=== PATIENT | female | born 1950 | race African-American/Black ===

== ENCOUNTER 2017-10-01 21:41 | Emergency (ER) | payer OTHER ==
[2017-10-01 22:13] LABS: ADD MAN DIFF? NO
[2017-10-01 22:18] LABS: BILIRUBIN,URINE NEGATIVE (NEG); CLARITY,URINE CLEAR; COLOR,URINE YELLOW; GLUCOSE,URINE NEGATIVE (NEG); NITRITE,URINE POSITIVE (NEG); PH,URINE 5.5; PROTEIN,URINE NEGATIVE (NEG-TRACE)
[2017-10-01 22:20] LABS: BASO # 0.1 x10^3/uL (0.0-0.2); BASO % 1 % (0-3); EOS # 0.1 x10^3/uL (0.0-0.7); EOS % 2 % (0-3); HEMATOCRIT 42.7 % (36.0-47.0); HEMOGLOBIN 14.3 g/dL (12.0-15.5); LYMPH # 2.1 x10^3/uL (1.0-4.8); LYMPH % 27 % (24-48); MEAN CORPUSCULAR HEMOGLOBIN 33 pg (25-35); MEAN CORPUSCULAR HGB CONC 34 g/dL (31-37); MEAN CORPUSCULAR VOLUME 98 fL (79-100); MONO # 0.6 x10^3/uL (0.0-1.1); MONO % 8 % (0-9); NEUT # 5.1 x10^3uL (1.8-7.7); NEUT % 64 % (31-73); PLATELET COUNT 287 x10^3/uL (140-400); RED BLOOD COUNT 4.37 x10^6/uL (3.50-5.40); WHITE BLOOD COUNT 8.1 x10^3/uL (4.0-11.0)
[2017-10-01 22:27] LABS: AGAP ISTAT 18 mmol/L (6-14); BUN ISTAT 12 mg/dL (8-26); CHLORIDE ISTAT 100 mmol/L (98-110); CREATININE ISTAT 0.8 mg/dL (0.5-1.4); GLUCOSE ISTAT 116 mg/dL (70-99); HEMATOCRIT ISTAT 42 % (36-40); HEMOGLOBIN ISTAT 14.3 g/dL (12-15); ION CA ISTAT 1.11 mmol/L (1.13-1.32); POTASSIUM ISTAT 3.8 mmol/L (3.5-5.0); RBC,URINE 0 /HPF (0-2); SODIUM ISTAT 137 mmol/L (135-145); TOT CO2 ISTAT 23 mmol/L (23-32)
[2017-10-01 22:28] LABS: BACTERIA,URINE MANY /HPF (0-FEW); SQUAMOUS EPITHELIAL CELL,UR MOD /LPF; TRICHOMONAS,URINE PRESENT; WBC,URINE 20-40 /HPF (0-4)
[2017-10-01 22:32] LABS: ANION GAP 14 (6-14); BLOOD UREA NITROGEN 13 mg/dL (7-20); BUN/CREATININE RATIO 14 (6-20); CALCIUM 9.2 mg/dL (8.5-10.1); CARBON DIOXIDE 23 mmol/L (21-32); CHLORIDE 100 mmol/L (98-107); CREATININE 0.9 mg/dL (0.6-1.0); GFR 75.6; GLUCOSE 118 mg/dL (70-99); POTASSIUM 3.9 mmol/L (3.5-5.1); SODIUM 137 mmol/L (136-145)
[2017-10-01 22:40] LABS: ALBUMIN 3.8 g/dL (3.4-5.0); ALK PHOS 80 U/L (46-116); ALT (SGPT) 36 U/L (14-59); AST (SGOT) 16 U/L (15-37); LIPASE 109 U/L (73-393); TOTAL BILIRUBIN 0.4 mg/dL (0.2-1.0); TOTAL PROTEIN 7.8 g/dL (6.4-8.2)
[2017-10-01] MEDS ORDERED: CONTRAST GIVEN MC (22:45)
[2017-10-01] MEDS ORDERED: ONDANSETRON PF 4 MG/2 ML VIAL. (22:48)
[2017-10-01] MEDS ORDERED: KETOROLAC 15 MG/ML VIAL. (22:48)
[2017-10-01] MEDS ORDERED: KETOROLAC 30 MG/ML INJ. IV (23:00)
[2017-10-01] MEDS: IOHEXOL 300 MG/ML 100ML VIAL. IV (23:00)
[2017-10-01] MEDS: ONDANSETRON PF 4 MG/2 ML VIAL. IV (23:01)
[2017-10-01] MEDS: KETOROLAC 15 MG/ML VIAL. IV (23:02)
[2017-10-02] MEDS: cefTRIAXone IM 250 MG VIAL IM (00:30)
[2017-10-02] MEDS: metroNIDAZOLE 500 MG TABLET PO (00:30)
[2017-10-02] MEDS: AZITHROMYCIN 250 MG TABLET. PO (00:30)
== END 2017-10-02 01:00 | disposition home or self-care (01) ==
LOC: ER 10-02 01:00
DX: A59.01 Trichomonal vulvovaginitis (principal); E11.9 Type 2 diabetes mellitus without complications; E78.00 Pure hypercholesterolemia, unspecified; I10 Essential (primary) hypertension; E66.9 Obesity, unspecified; Z86.718 Personal history of other venous thrombosis and embolism; Z68.38 Body mass index [BMI] 38.0-38.9, adult; Z88.6 Allergy status to analgesic agent
CPT/HCPCS: 36415; 74177; 80047; 80053; 81001; 83690; 85025; 96372; 96374; 96375; 99285-25; J0696; J1885; J2405; Q0144

== ENCOUNTER → 2018-09-02 | Outpatient (CLI) | payer OTHER ==
[2017-10-02 00:27] VITALS: BP 160/70
[~2018-09-02] MED LIST: CEPH-264 PO
--- NOTE | 2018-09-02 16:01 | KCIC ---
EXAM: Bilateral screening mammogram. HISTORY: 68-year-old female presents for screening mammography. TECHNIQUE: Full-field digital craniocaudal and mediolateral oblique views of both breasts are obtained for evaluation. Computer aided detection with myhubD software version 9.3 was applied. COMPARISON: 01/13/2015 BREAST PARENCHYMAL DENSITY: Level B - Scattered fibroglandular densities. FINDINGS: There is no new suspicious mass, microcalcification or region of architectural distortion. There are stable areas of nodularity within both breasts. There are benign calcifications within both breasts. IMPRESSION: BI-RADS Category 2: Benign finding(s). RECOMMENDATION: Annual mammography is recommended. If your mammogram demonstrates that you have dense breast tissue, which could hide abnormalities, and if you have other risk factors for breast cancer that have been identified, you might benefit from supplemental screening tests that may be suggested by your ordering physician. Dense breast tissue, in and of itself, is a relatively common condition. This information is not provided to cause undue concern, but rather to raise your awareness and to promote discussion with your physician regarding the presence of other risk factors, in addition to dense breast tissue. A report of your mammography results will be sent to you and your physician. You should contact your physician if you have any questions or concerns regarding this report. Mammography is a sensitive method for finding small breast cancers, but it does not detect them all and is not a substitute for careful clinical examination. A negative mammogram does not negate a clinically suspicious finding and should not result in delay in biopsying a clinically suspicious abnormality. PQRS compliance statement - Patient information was entered into a reminder system with a target due date for the next mammogram. "Our facility is accredited by the [employer] Mammography Program." Electronically signed by: Babita Samano MD (09/02/2018 3:57 PM) [id number]
== END | disposition home or self-care (01) ==
LOC: KCIC MAMMO 15:18
PROVIDERS: ATTEND Internal Medicine
DX: Z12.31 Encounter for screening mammogram for malignant neoplasm of breast (principal)
CPT/HCPCS: 77067

== ENCOUNTER → 2019-09-20 | Outpatient (CLI) | payer OTHER ==
[2017-10-02 00:27] VITALS: BP 160/70
--- NOTE | 2019-09-20 18:49 | KCIC ---
Bilateral digital screening mammograms: Reason for examination: Routine screening. Comparison is made to previous studies dated 09/02/2018 and 01/13/2015. Interpretation was made with the benefit of CAD. The skin and nipples show no abnormalities. No abnormal axillary lymph nodes are seen. The breast parenchyma shows scattered fibroglandular density. (Breast density: Category B.) There are small parenchymal densities in the left breast which are stable. There are no new dominant masses, suspicious calcifications or architectural distortions. Some benign calcifications are present. Impression: No evidence of malignancy. Recommend routine screening. BI-RADS category 2: Benign "Our facility is accredited by the [employer] Mammography Program." This patient's information has been entered into a reminder system for the patient to be notified with the results of her examination and a target date for the next mammogram. Electronically signed by: Alpa Correia MD (09/20/2019 6:46 PM) [id number]
== END | disposition home or self-care (01) ==
LOC: KCIC MAMMO 15:01
PROVIDERS: ATTEND Internal Medicine
DX: Z12.31 Encounter for screening mammogram for malignant neoplasm of breast (principal); N64.89 Other specified disorders of breast
CPT/HCPCS: 77067

== ENCOUNTER → 2019-10-25 | Outpatient (CLI) | payer OTHER ==
[2017-10-02 00:27] VITALS: BP 160/70
--- NOTE | 2019-10-27 14:40 | CARD ---
MR#: [id number] Date of Study: 10/25/2019 Ordering Physician: MICHELLE ORTIZ, Referring Physician: MICHELLE ORTIZ, Tech: Malinda Holly REX APPROVED REPORT EXAM: Two-dimensional and M-mode echocardiogram with Doppler and color Doppler. Other Information Quality : AverageHR: 102bpm Rhythm : NSRTechnically limited study due to body habitus. INDICATION Chest Pain 2D DIMENSIONS RVDd2.9 (2.9-3.5cm)Left Atrium(2D)3.0 (1.6-4.0cm) IVSd1.5 (0.7-1.1cm)Aortic Root(2D)2.6 (2.0-3.7cm) LVDd3.3 (3.9-5.9cm)LVOT Diameter1.9 (1.8-2.4cm) PWd0.9 (0.7-1.1cm)IVSs1.9 (0.8-1.2cm) LVDs2.5 (2.5-4.0cm)FS (%) 24.5 % PWs1.3 (0.8-1.2cm)SV22.6 ml LVEF(%)55.0 (>50%) M-Mode DIMENSIONS Left Atrium(MM)2.81 (2.5-4.0cm)Aortic Root3.16 (2.2-3.7cm) Aortic Valve AoV Peak Phil.165.0cm/sAoV VTI28.0cm AO Peak GR.10.9mmHgLVOT Peak Phil.88.5cm/s LVOT VTI 16.33cmAO Mean GR.6mmHg KARI (VMAX)1.91lb9WFL (VTI)1.66cm2 Mitral Valve MV E Qxfphbcu28.5cm/sMV DECEL [id number] MV A Ayvlfkfx878.0cm/sMV QZQ63mz E/A Ratio0.6MVA (PHT)5.31cm2 Pulmonary Valve PV Peak Pkhbgjfu11.5cm/sPV Peak Grad.3mmHg LEFT VENTRICLE The left ventricle is normal size. There is moderate concentric left ventricular hypertrophy. The lef t ventricular systolic function is normal and the ejection fraction is within normal range. The Eject ion Fraction is 60-65%. There is grossly normal LV segmental wall motion. Transmitral Doppler flow pa ttern is Grade I-abnormal relaxation pattern. RIGHT VENTRICLE The right ventricle is normal size. There is normal right ventricular wall thickness. The right ventr icular systolic function is normal. ATRIA The left atrium is moderately dilated. The right atrium is mildly dilated. The interatrial septum is intact with no evidence for an atrial septal defect or patent foramen ovale as noted on 2-D or Dopple r imaging. AORTIC VALVE The aortic valve is probably trileaflet. The aortic valve is thickened/calcified and not well visuali zed. Doppler and Color Flow revealed no significant aortic regurgitation. There is no significant aor tic valvular stenosis. MITRAL VALVE Mitral annular calcification is mild to moderate. There is no evidence of mitral valve prolapse. Ther e is no mitral valve stenosis. Doppler and Color Flow revealed no mitral valve regurgitation noted. TRICUSPID VALVE The tricuspid valve is normal in structure and function. Doppler and Color Flow revealed no tricuspid valve regurgitation noted. There is no tricuspid valve prolapse or vegetation. There is no tricuspid valve stenosis. PULMONIC VALVE The pulmonic valve is not well visualized. GREAT VESSELS The aortic root is normal in size. The ascending aorta is normal in size. The IVC is normal in size a nd collapses >50% with inspiration. PERICARDIAL EFFUSION There is no evidence of significant pericardial effusion. Critical Notification Critical Value: No <Conclusion> The left ventricular systolic function is normal and the ejection fraction is within normal range. Th e Ejection Fraction is 60-65%. There is grossly normal LV segmental wall motion. Signed by : Jun Henson, Electronically Approved : 10/25/2019 14:32:32
== END | disposition home or self-care (01) ==
LOC: ECHO 13:21
PROVIDERS: ATTEND Internal Medicine Cardiovascular Disease
DX: I34.8 Other nonrheumatic mitral valve disorders (principal); I51.7 Cardiomegaly
CPT/HCPCS: 93306

== ENCOUNTER → 2020-11-09 | Outpatient (CLI) | payer OTHER ==
[2017-10-02 00:27] VITALS: BP 160/70
--- NOTE | 2020-11-09 14:55 | KCIC ---
INDICATION: Screening for osteopenia/osteoporosis. Postmenopausal evaluation. COMPARISON: None. TECHNIQUE: Bone densitometry was performed through the lumbar spine and proximal femur. IMPRESSION: Lumbar Spine: BMD: 1.27 T-Score: 2.0 Range: Normal Proximal Femur: BMD: 0.8 T-Score: -1.1 Range: Osteopenic World Health Organization Criteria for Bone Density: T-Score: > -1.0: Normal Range < -1.0 to -2.5: Osteopenic Range < -2.5: Osteoporotic Range Electronically signed by: Ulices Smith MD (11/09/2020 2:52 PM) [id number]
--- NOTE | 2020-11-10 11:36 | KCIC ---
BILATERAL SCREENING MAMMOGRAM History: Routine screening. Comparison: Bilateral mammogram September 20, 2019 and prior years. Technique: Routine digital mammogram views were obtained. Findings: Breast Tissue Density B : There are scattered areas of fibroglandular density. Benign calcifications are redemonstrated bilaterally. Mild glandular nodularity of the left breast is unchanged. There are no dominant masses, suspicious microcalcifications or architectural distortion. IMPRESSION: No mammographic evidence of malignancy. Recommend routine screening. BI-RADS category 2: Benign findings. The images were reviewed with computer aided detection. Patient information is entered into the reminder system with a target due date for the next screening mammogram. Mammography is the most sensitive method for finding small breast cancers, but it does not detect the m all and is not a substitute for careful clinical examination. A negative mammogram does not negate a clinically suspicious finding and should not result in delay in biopsying a clinically suspicious a bnormality. "Our facility is accredited by the [employer] Mammography Program." Electronically signed by: Chay Bhatt MD (11/10/2020 11:34 AM) [facility]
== END ==
LOC: KCIC MAMMO 12:22
PROVIDERS: ATTEND Internal Medicine
DX: Z12.31 Encounter for screening mammogram for malignant neoplasm of breast (principal); Z78.0 Asymptomatic menopausal state
CPT/HCPCS: 77067; 77080

== ENCOUNTER 2021-04-19 17:13 | Emergency (ER) | payer OTHER ==
[~2021-04-19] VITALS: Ht 165.1 cm; Wt 106.8 kg
[2021-04-19 20:37] VITALS: BP 158/76
[2021-04-19] MEDS ORDERED: NEOMY/BACITR/POLYMYXIN OINT PACKET. TP ONE (21:15)
[2021-04-19] MEDS ORDERED: DIPH,PERTUSS(ACELL),TET VAC/PF 0.5 ML SYRINGE. VAX IM ONE (21:15)
[2021-04-19] MEDS ORDERED: BACI28.43 TP (21:40)
--- NOTE | 2021-04-19 21:40 | PHYS DOC ---
Past Medical History Past Medical History: Diabetes-Type II, High Cholesterol, Hypertension Additional Past Medical Histor: HIGH CHOLESTEROL (MADELINE NICHOLE ITALIAN LECTURER) Past Surgical History: Other Additional Past Surgical Histo: RLE DVT (MADELINE NICHOLE ITALIAN LECTURER) Smoking Status: Current Every Day Smoker Alcohol Use: None Drug Use: None (MADELINE NICHOLE APRN) General Adult EDM: Chief Complaint: FINGER INJURY HPI: HPI: Patient is a 70 year old female with a history of diabetes type 2, hyperten ember, high cholesterol, who presents to the ED today with a burn to the right middle finger that occurred yesterday while she was making casserole. Patient is right-handed. Requesting debridement. (MADELINE NICHOLE ITALIAN LECTURER) Review of Systems: Review of Systems: Constitutional: Denies fever or chills. [] Musculoskeletal: Denies back pain or joint pain. [] Integument: Right middle finger burn Neurologic: Denies headache, focal weakness or sensory changes. [] Psychiatric: Denies depression or anxiety. [] (MADELINE NICHOLE ITALIAN LECTURER) Heart Score: C/O Chest Pain: N/A Risk Factors: Risk Factors: DM, Current or recent (<one month) smoker, HTN, HLP, family history of CAD, obesity. Risk Scores: Score 0 - 3: 2.5% MACE over next 6 weeks - Discharge Home Score 4 - 6: 20.3% MACE over next 6 weeks - Admit for Clinical Observation Score 7 - 10: 72.7% MACE over next 6 weeks - Early Invasive Strategies (MADELINE NICHOLE ITALIAN LECTURER) Current Medications: Current Medications Medications (Trade) Dose Ordered Sig/Yong Start Time Stop Time Status Last Admin Dose Admin Diphtheria/ Tetanus/Acell Pertussis (ADACEL TDap SYRINGE) 0.5 ml ONCE ONCE 04/19/21 21:15 04/19/21 21:16 DC Neomycin/ Polymyxin/ Bacitracin (Triple Antibiotic Ointment) 1 pkt 1X ONCE 04/19/21 21:15 04/19/21 21:16 DC (MADELINE NICHOLE ITALIAN LECTURER) Allergies: Allergies: Allergies Coded Allergies Type Severity Reaction Last Updated Verified acetaminophen Allergy Intermediate RASH 10/01/17 Yes ibuprofen Allergy Intermediate RASH 10/01/17 Yes (MADELINE NICHOLE ITALIAN LECTURER) Physical Exam: PE: Constitutional: Well developed, well nourished, no acute distress, non-toxic appearance. [] Skin: Warm, dry, no erythema, distal end of the right middle finger with a moderate size blister, no erythema. Neurovascular exam is intact to the right middle finger. +2 right radial pulse. Cap refill less than 2 seconds in the right middle finger Back: No tenderness, no CVA tenderness. [] Extremities: No tenderness, no cyanosis, no clubbing, ROM intact, no edema. [] Neurologic: Alert and oriented X 3, normal motor function, normal sensory function, no focal deficits noted. [] Psychologic: Affect normal, judgement normal, mood normal. [] (MADELINE NICHOLE APRN) Current Patient Data: Vital Signs: Vital Signs Date Time Temp Pulse Resp B/P (MAP) Pulse Ox O2 Delivery O2 Flow Rate FiO2 04/19/21 20:37 98.6 87 18 158/76 (100) 96 Room Air 98.6 (MADELINE NICHOLE APRN) EKG: EKG: [] (MADELINE NICHOLE APRN) Radiology/Procedures: Radiology/Procedures: Indication: Blister to the right middle finger from a burn Procedure: The patient was positioned appropriately. Local anesthesia was not applicable. An 18-gauge needle was used to make a small hole on the blister, moderate amount of clear fluid was drained. Neosporin applied to the area as well as nonstick dressing.. The patient tolerated the procedure well. Complications: none.[] (MADELINE NICHOLE APRN) Course & Med Decision Making: Course & Med Decision Making Pertinent Labs and Imaging studies reviewed. (See chart for details) This is a 70-year-old female patient presented to the ED today with a blister to the right middle finger from a burn yesterday. Blister was drained by me. Tetanus updated. Instructed to follow-up with [facility] wound clinic. (MADELINE NICHOLE APRN) Course & Med Decision Making I d/w my midlevel. Pt was very rude and accused her of not having a license, was upset over initial refusal to draing the blister given risk of infection. Pt a torrez of risk of infection and insists on having the blister drained. Was performed under sterile conditions with wound care instructions given. (ROSIE MARTIN DO) Dragon Disclaimer: David Disclaimer: This electronic medical record was generated, in whole or in part, using a voice recognition dictation system. (MADELINE NICHOLE APRN) Departure Departure Impression: Primary Impression: Second degree burn of finger of right hand Qualified Codes: T23.221A - Burn of second degree of single right finger (nail) except thumb, initial encounter Disposition: HOME / SELF CARE / HOMELESS Condition: STABLE Referrals: NICHOL MCALLISTER MD (PCP) LULU LANDIN MD Follow-up for the wound clinic Patient Instructions: Burn Care, Gitn-gv-Fixw Additional Instructions: You had a blister drained to your right middle finger, keep the area clean and dry. Follow-up with [facility] wound clinic as soon as you can Scripts Bacitracin (Bacitracin) 28.4 Gm Oint...g. 1 APPLIC TP BID, #[facility] Prov: MADELINE NICHOLE APRN 04/19/21 MADELINE NICHOLE APRN Apr 19, 2021 21:40 ROSIE MARTIN DO Apr 19, 2021 23:15
== END 2021-04-19 21:52 | disposition home or self-care (01) ==
LOC: ER 17:13
DX: T23.221A Burn of second degree of single right finger (nail) except thumb, initial encounter (principal); E11.9 Type 2 diabetes mellitus without complications; I10 Essential (primary) hypertension; E78.00 Pure hypercholesterolemia, unspecified; F17.200 Nicotine dependence, unspecified, uncomplicated; Z88.6 Allergy status to analgesic agent; X19.XXXA Contact with other heat and hot substances, initial encounter; Y93.89 Activity, other specified; Y92.89 Other specified places as the place of occurrence of the external cause; Y99.8 Other external cause status
CPT/HCPCS: 16020; 90471; 90715; 99283

== ENCOUNTER → 2022-01-09 | Outpatient (CLI) | payer MEDICARE, OTHER ==
[~2022-01-09] MED LIST changes: +BACI28.43 TP
--- NOTE | 2022-01-09 16:00 | KCIC ---
EXAM: Bilateral screening mammogram. HISTORY: 71-year-old female presents for screening mammography. TECHNIQUE: Full-field digital craniocaudal and mediolateral oblique views of both breasts are obtaine d for evaluation. Computer aided detection was applied. COMPARISON: 11/09/2020, 09/20/2019, 09/02/2018 BREAST PARENCHYMAL DENSITY: Level C - Heterogeneously dense. FINDINGS: There is no new suspicious mass, microcalcification or region of architectural distortion. There are multiple stable benign areas of nodularity and asymmetry within both breasts. There are mul tiple benign calcifications. IMPRESSION: RECOMMENDATION: If your mammogram demonstrates that you have dense breast tissue, which could hide abnormalities, and if you have other risk factors for breast cancer that have been identified, you might benefit from s upplemental screening tests that may be suggested by your ordering physician. Dense breast tissue, i n and of itself, is a relatively common condition. This information is not provided to cause undue c oncern, but rather to raise your awareness and to promote discussion with your physician regarding th e presence of other risk factors, in addition to dense breast tissue. A report of your mammography re sults will be sent to you and your physician. You should contact your physician if you have any ques tions or concerns regarding this report. Mammography is a sensitive method for finding small breast cancers, but it does not detect them all a nd is not a substitute for careful clinical examination. A negative mammogram does not negate a clin ically suspicious finding and should not result in delay in biopsying a clinically suspicious abnorma lity. PQRS compliance statement - Patient information was entered into a reminder system with a target due date for the next mammogram. "Our facility is accredited by the [employer] Mammography Program." Electronically signed by: Babita Samano MD (01/09/2022 3:58 PM) [facility]
== END ==
LOC: KCIC MAMMO 13:43
PROVIDERS: ATTEND Internal Medicine
DX: Z12.31 Encounter for screening mammogram for malignant neoplasm of breast (principal)
CPT/HCPCS: 77067

== ENCOUNTER → 2022-01-23 | Outpatient (CLI) | payer MEDICARE ==
--- NOTE | 2022-01-24 08:44 | RAD ---
EXAM: Right hand, 3 views. HISTORY: Pain. COMPARISON: None. FINDINGS: 3 views of the right hand are obtained. There is no fracture, dislocation or subluxation. T here is no suspicious osseous lesion. There is no foreign body. There are vascular calcifications inv olving the wrist. IMPRESSION: No acute osseous finding. Electronically signed by: Babita Samano MD (01/24/2022 8:42 AM) [id number]
== END ==
LOC: RAD 13:55
PROVIDERS: ATTEND Internal Medicine
DX: S69.91XA Unspecified injury of right wrist, hand and finger(s), initial encounter (principal); X58.XXXA Exposure to other specified factors, initial encounter; Y93.89 Activity, other specified; Y92.89 Other specified places as the place of occurrence of the external cause; Y99.8 Other external cause status
CPT/HCPCS: 73130